=== PATIENT | female | born 1985 | race African-American/Black ===

== ENCOUNTER 2017-08-13 10:17 | Emergency (ER) | payer SELFPAY ==
[2017-08-13] MEDS ORDERED: Acetaminophen 500 MG TAB ONE (12:03)
--- NOTE | 2017-08-13 12:33 | ULT ---
PELVIC SONOGRAM: HISTORY: Pelvic pain. Pelvic bleeding. TECHNIQUE: Transabdominal and transvaginal imaging with duplex evaluation. FINDINGS: The urinary bladder is unremarkable. The uterus is retroverted and measures up to 13.1 cm in length. No free fluid is evident within the pelvis. The endometrium is 0.3 cm. The right ovary is 3 cm in length and the left is 3.2 cm. Each has a normal sonographic appearance and demonstrates good color and spectral Doppler flow. IMPRESSION: Retroverted uterus that is enlarged. No evidence of intrauterine . No abnormalities are de monstrated. POS: [facility]
== END 2017-08-13 15:00 | disposition home or self-care (01) ==
LOC: ERS 10:17
DX: O20.9 Hemorrhage in early pregnancy, unspecified (principal); O24.415 Gestational diabetes mellitus in pregnancy, controlled by oral hypoglycemic drugs; O99.351 Diseases of the nervous system complicating pregnancy, first trimester; G43.909 Migraine, unspecified, not intractable, without status migrainosus; O16.1 Unspecified maternal hypertension, first trimester; Z87.891 Personal history of nicotine dependence; Z79.899 Other long term (current) drug therapy; Z3A.10 10 weeks gestation of pregnancy
CPT/HCPCS: 76856

== ENCOUNTER 2018-05-30 17:21 | Emergency (ER) | payer OTHER ==
[2018-05-30] MEDS ORDERED: Lidocaine 1% PF 5 ML VIAL ONE (18:12)
[2018-05-30] MEDS ORDERED: Ondansetron ODT 4 MG TAB ONE (18:24)
[2018-05-30] MEDS ORDERED: HYDROcodone/Acetaminophen 10/325 mg Tablet ONE (18:40)
== END 2018-05-30 18:56 | disposition home or self-care (01) ==
LOC: ERS 17:21
DX: L02.31 Cutaneous abscess of buttock (principal); I10 Essential (primary) hypertension; Z87.891 Personal history of nicotine dependence; Z79.899 Other long term (current) drug therapy
CPT/HCPCS: 10060; 87070; 87077; 87186; 87205; J2001; Q0162

== ENCOUNTER 2018-11-26 08:22 | Emergency (ER) | payer OTHER ==
--- NOTE | 2018-11-26 09:12 | RAD ---
LEFT FOOT 3 VIEWS: Date: 11/26/18 HISTORY: Fall. COMPARISON: Left foot radiographs dated 02/14/18. FINDINGS: There is a bipartite medial hallux sesamoid versus an old fracture. The Lisfranc interval is maintain ed. Mild soft tissue swelling of the hindfoot. IMPRESSION: No acute osseous abnormality. POS: [facility]
--- NOTE | 2018-11-26 09:58 | RAD ---
LEFT ANKLE 3 VIEWS: Date: 11/26/18 HISTORY: Ankle pain. Patient tripped and fell down a few steps yesterday, twisting her ankle. FINDINGS: Calcaneal spurs are noted. There are no signs of fracture or dislocation. IMPRESSION: No evidence of fracture. POS: [facility]
[2018-11-26] MEDS ORDERED: Ibuprofen 800 MG TAB ONE (10:20)
== END 2018-11-26 10:30 | disposition home or self-care (01) ==
LOC: ERS 08:22
DX: M25.572 Pain in left ankle and joints of left foot (principal); I10 Essential (primary) hypertension; G43.909 Migraine, unspecified, not intractable, without status migrainosus; F41.9 Anxiety disorder, unspecified; F32.9 Major depressive disorder, single episode, unspecified; Z87.891 Personal history of nicotine dependence; Z79.899 Other long term (current) drug therapy; X50.9XXA Other and unspecified overexertion or strenuous movements or postures, initial encounter

== ENCOUNTER 2019-01-22 08:24 | Emergency (ER) | payer OTHER ==
[2019-01-22 09:31] LABS: #Eosinphils 0.1 thou/uL (0.0-0.7); #Lymphocytes 2.3 thou/uL (1.20-3.40); #Monocytes 0.4 thou/uL (0.11-0.59); #Neutrophils 4.7 thou/uL (1.40-6.50); %Basophils 0.5 % (0.0-1.0); %Eosinophils 1.8 % (0.0-10.0); %Lymphocytes 30.3 % (21.0-51.0); %Monocytes 5.6 % (0.0-10.0); %Neutrophils 61.8 % (42.0-75.0); Hemoglobin 11.8 g/dL (12.0-16.0); Mean Corpuscular HGB CONC 31.9 g/dL (32.0-36.0); Mean Corpuscular Hemoglobin 27.5 pg (27.0-31.0); Mean Corpuscular Volume 86.1 fL (78.0-98.0); Mean Platelet Volume 10.6 fL (7.4-10.4); Platelet Count 214 thou/uL (130-400); RBC Distribution Width 12.6 % (11.5-14.5); Red Blood Cell (RBC) Count 4.29 mill/uL (4.20-5.40); White Blood Cell (WBC) Count 7.7 thou/uL (4.8-10.8)
[2019-01-22 10:01] LABS: ALT (SGPT) 22 U/L (8-55); AST (SGOT) 14 U/L (5-34); Alkaline Phosphatase 95 U/L (40-150); Anion Gap 10 mmol/L (10-20); BUN (Urea Nitrogen) 9 mg/dL (7.0-18.7); Bilirubin, Total 0.3 mg/dL (0.2-1.2); Calc. Creatinine Clearance 0 mL/min (70-130); Calcium 9.3 mg/dL (7.8-10.44); Carbon Dioxide 28 mmol/L (22-29); Chloride 103 mmol/L (98-107); Estimated GFR-MDRD Greater than 90; Globulin 2.8 g/dL (2.4-3.5); Glucose 91 mg/dL (70-105); Lipase 15 U/L (8-78); Protein, Total 6.8 g/dL (6.0-8.3); Sodium 137 mmol/L (136-145)
== END 2019-01-22 10:47 | disposition home or self-care (01) ==
LOC: ERS 08:24
DX: D21.9 Benign neoplasm of connective and other soft tissue, unspecified (principal); I10 Essential (primary) hypertension; F41.9 Anxiety disorder, unspecified; F32.9 Major depressive disorder, single episode, unspecified; G43.909 Migraine, unspecified, not intractable, without status migrainosus; Z87.891 Personal history of nicotine dependence; Z79.899 Other long term (current) drug therapy
CPT/HCPCS: 36415; 80053; 83690; 85025; 99284

== ENCOUNTER 2019-01-27 17:16 | Emergency (ER) | payer OTHER ==
[2019-01-27] MEDS ORDERED: Ketorolac Tromethamine 30 MG/ML VIAL ONE (17:54)
== END 2019-01-27 18:00 | disposition home or self-care (01) ==
LOC: ERS 17:16
DX: K04.7 Periapical abscess without sinus (principal); K02.9 Dental caries, unspecified; I10 Essential (primary) hypertension; F41.9 Anxiety disorder, unspecified; F32.9 Major depressive disorder, single episode, unspecified; Z87.891 Personal history of nicotine dependence; Z79.899 Other long term (current) drug therapy
CPT/HCPCS: 96372; J1885

== ENCOUNTER 2019-02-21 19:52 | Emergency (ER) | payer OTHER ==
[2019-02-21] MEDS ORDERED: diphenhydrAMINE 50 MG/ML VIAL ONE (20:25)
[2019-02-21] MEDS ORDERED: Metoclopramide HCl 10 MG/2 ML VIAL ONE (20:25)
[2019-02-21 20:32] LABS: #Basophils 0.1 thou/uL (0.0-0.2); #Eosinphils 0.1 thou/uL (0.0-0.7); #Lymphocytes 2.9 thou/uL (1.20-3.40); #Monocytes 0.7 thou/uL (0.11-0.59); #Neutrophils 6.1 thou/uL (1.40-6.50); %Basophils 0.9 % (0.0-1.0); %Eosinophils 1.3 % (0.0-10.0); %Lymphocytes 29.1 % (21.0-51.0); %Monocytes 6.8 % (0.0-10.0); %Neutrophils 61.9 % (42.0-75.0); Hemoglobin 12.1 g/dL (12.0-16.0); Mean Corpuscular HGB CONC 32.1 g/dL (32.0-36.0); Mean Corpuscular Hemoglobin 27.5 pg (27.0-31.0); Mean Corpuscular Volume 85.6 fL (78.0-98.0); Mean Platelet Volume 10.8 fL (7.4-10.4); Platelet Count 207 thou/uL (130-400); RBC Distribution Width 12.8 % (11.5-14.5); White Blood Cell (WBC) Count 9.8 thou/uL (4.8-10.8)
[2019-02-21 20:59] LABS: ALT (SGPT) 32 U/L (8-55); AST (SGOT) 21 U/L (5-34); Albumin 4.3 g/dL (3.5-5.0); Alkaline Phosphatase 105 U/L (40-150); Anion Gap 9 mmol/L (10-20); BUN (Urea Nitrogen) 9 mg/dL (7.0-18.7); Bilirubin, Total 0.4 mg/dL (0.2-1.2); Calc. Creatinine Clearance 0 mL/min (70-130); Calcium 9.3 mg/dL (7.8-10.44); Carbon Dioxide 29 mmol/L (22-29); Chloride 103 mmol/L (98-107); Estimated GFR-MDRD 85; Globulin 3.3 g/dL (2.4-3.5); Glucose 101 mg/dL (70-105); Lipase 27 U/L (8-78); Potassium 3.2 mmol/L (3.5-5.1); Protein, Total 7.6 g/dL (6.0-8.3); Sodium 138 mmol/L (136-145)
[2019-02-21] MEDS ORDERED: Potassium Chloride 20 MEQ TAB ONE (22:34)
== END 2019-02-21 22:41 | disposition home or self-care (01) ==
LOC: ERS 19:52
DX: E87.6 Hypokalemia (principal); R19.7 Diarrhea, unspecified; R11.2 Nausea with vomiting, unspecified; I10 Essential (primary) hypertension; F41.9 Anxiety disorder, unspecified; F32.9 Major depressive disorder, single episode, unspecified; Z87.891 Personal history of nicotine dependence
CPT/HCPCS: 80053; 83690; 85025; 96365; 96366; 96375; J1200; J2765

== ENCOUNTER 2019-06-01 10:58 | Emergency (ER) | payer OTHER ==
[2019-06-01 11:33] LABS: #Basophils 0.1 thou/uL (0.0-0.2); #Eosinphils 0.2 thou/uL (0.0-0.7); #Lymphocytes 2.1 thou/uL (1.20-3.40); #Monocytes 0.4 thou/uL (0.11-0.59); #Neutrophils 5.4 thou/uL (1.40-6.50); %Eosinophils 2.3 % (0.0-10.0); %Lymphocytes 25.9 % (21.0-51.0); %Monocytes 5.3 % (0.0-10.0); %Neutrophils 65.5 % (42.0-75.0); Hemoglobin 12.6 g/dL (12.0-16.0); Mean Corpuscular HGB CONC 32.2 g/dL (32.0-36.0); Mean Corpuscular Hemoglobin 27.2 pg (27.0-31.0); Mean Corpuscular Volume 84.3 fL (78.0-98.0); Mean Platelet Volume 11.1 fL (7.4-10.4); Platelet Count 181 thou/uL (130-400); RBC Distribution Width 13.1 % (11.5-14.5); Red Blood Cell (RBC) Count 4.64 mill/uL (4.20-5.40); White Blood Cell (WBC) Count 8.3 thou/uL (4.8-10.8)
[2019-06-01 11:52] LABS: ALT (SGPT) 33 U/L (8-55); AST (SGOT) 22 U/L (5-34); Albumin 4.1 g/dL (3.5-5.0); Alkaline Phosphatase 96 U/L (40-150); Anion Gap 11 mmol/L (10-20); BUN (Urea Nitrogen) 11 mg/dL (7.0-18.7); Bilirubin, Total 0.5 mg/dL (0.2-1.2); Calc. Creatinine Clearance 0 mL/min (70-130); Calcium 9.3 mg/dL (7.8-10.44); Carbon Dioxide 24 mmol/L (22-29); Chloride 104 mmol/L (98-107); Estimated GFR-MDRD Greater than 90; Globulin 3.2 g/dL (2.4-3.5); Glucose 111 mg/dL (70-105); Lipase 20 U/L (8-78); Potassium 3.6 mmol/L (3.5-5.1); Protein, Total 7.3 g/dL (6.0-8.3); Sodium 135 mmol/L (136-145)
--- NOTE | 2019-06-01 12:35 | RAD ---
EXAM: CHEST ONE VIEW HISTORY: Cough and sore throat. Headache. COMPARISON: 11/20/2015 obtained from [facility]. FINDINGS: Cardiac silhouette is magnified by projection. The pulmonary vasculature is within normal limits. The lungs are clear. The osseous structures are intact. There has been no interval change from prior exam. IMPRESSION: No acute cardiopulmonary process.
[2019-06-01 12:48] LABS: Bilirubin Negative (Negative); Blood, Urine Negative (Negative); Clarity Clear (Clear); Glucose, Urine (Dipstick) Normal (Negative); Leukocyte Negative Leu/uL (Negative); Nitrite Negative (Negative); Protein, Urine (Dipstick) Negative (Neg-Trace); Urobilinogen Normal mg/dL (Less than 2)
[2019-06-01 13:25] LABS: Pregnancy Test - Urine (BHCG) Negative (Negative); Pregu Control Background? CLEAR/WHITE (CLR/WHITE); Pregu Control Bar Appear? YES (CONTROL BAR); Specific Gravity 1.016 (1.002-1.036)
== END 2019-06-01 14:11 | disposition home or self-care (01) ==
LOC: ERS 10:58
DX: R11.2 Nausea with vomiting, unspecified (principal); R19.7 Diarrhea, unspecified; I10 Essential (primary) hypertension
CPT/HCPCS: 36415; 71045; 80053; 81003; 81025; 83690; 85025

== ENCOUNTER 2019-08-30 13:01 | Emergency (ER) | payer OTHER ==
[2019-08-30 15:13] LABS: Bilirubin Negative (Negative); Blood, Urine Negative (Negative); Clarity Clear (Clear); Glucose, Urine (Dipstick) Normal (Negative); Leukocyte Negative Leu/uL (Negative); Nitrite Negative (Negative); Protein, Urine (Dipstick) Negative (Neg-Trace); Urobilinogen Normal mg/dL (Less than 2)
[2019-08-30 15:14] LABS: Pregnancy Test - Urine (BHCG) Negative (Negative); Pregu Control Background? CLEAR/WHITE (CLR/WHITE); Pregu Control Bar Appear? YES (CONTROL BAR); Specific Gravity 1.021 (1.002-1.036)
[2019-08-30] MEDS ORDERED: Ketorolac Tromethamine 60 MG/2 ML VIAL ONE (16:24)
== END 2019-08-30 16:50 | disposition home or self-care (01) ==
LOC: ERS 13:01
DX: S29.012A Strain of muscle and tendon of back wall of thorax, initial encounter (principal); G43.909 Migraine, unspecified, not intractable, without status migrainosus; F41.9 Anxiety disorder, unspecified; F32.9 Major depressive disorder, single episode, unspecified; I10 Essential (primary) hypertension; W18.2XXA Fall in (into) shower or empty bathtub, initial encounter
CPT/HCPCS: 81003; 81025; 96372; 99283; J1885

== ENCOUNTER 2019-12-20 19:35 | Emergency (ER) | payer OTHER | END 2019-12-20 20:52 | disposition home or self-care (01) | LOC: ERS 19:35 | DX: F43.0 Acute stress reaction (principal); I10 Essential (primary) hypertension; F41.9 Anxiety disorder, unspecified; F32.9 Major depressive disorder, single episode, unspecified; Z87.891 Personal history of nicotine dependence; Z79.899 Other long term (current) drug therapy | CPT/HCPCS: 99283 ==

== ENCOUNTER 2020-01-23 10:22 | Emergency (ER) | payer OTHER ==
[2020-01-23] MEDS ORDERED: Acetaminophen/Codeine 30-300mg Tablet ONE (11:19)
[2020-01-23 11:48] LABS: Bilirubin Negative (Negative); Blood, Urine Negative (Negative); Clarity Clear (Clear); Glucose, Urine (Dipstick) Normal (Negative); Leukocyte Negative Leu/uL (Negative); Nitrite Negative (Negative); Protein, Urine (Dipstick) Negative (Neg-Trace); Urobilinogen Normal mg/dL (Less than 2)
[2020-01-23 11:51] LABS: Pregnancy Test - Urine (BHCG) Negative (Negative); Pregu Control Background? CLEAR/WHITE (CLR/WHITE); Pregu Control Bar Appear? YES (CONTROL BAR); Specific Gravity 1.026 (1.002-1.036)
== END 2020-01-23 12:11 | disposition home or self-care (01) ==
LOC: ERS 10:22
DX: R10.9 Unspecified abdominal pain (principal); I10 Essential (primary) hypertension; G43.909 Migraine, unspecified, not intractable, without status migrainosus; F41.9 Anxiety disorder, unspecified; F32.9 Major depressive disorder, single episode, unspecified; Z87.891 Personal history of nicotine dependence; Z79.899 Other long term (current) drug therapy
CPT/HCPCS: 81003; 81025; 99284

== ENCOUNTER 2020-05-12 12:35 | Emergency (ER) | payer OTHER ==
[2020-05-13 14:05] LABS: SARS-CoV-2 MS2 Positive; SARS-CoV-2 N Gene Negative; SARS-CoV-2 S Gene Negative; SARS-CoV-2 by NAA Not Detected (NotDetected); SARS-CoV-2 orf1ab Negative
== END 2020-05-12 13:20 | disposition home or self-care (01) ==
LOC: ERS 12:35
DX: R05 Cough (principal); R52 Pain, unspecified; Z20.828 Contact with and (suspected) exposure to other viral communicable diseases; F41.9 Anxiety disorder, unspecified; F32.9 Major depressive disorder, single episode, unspecified; I10 Essential (primary) hypertension; G43.909 Migraine, unspecified, not intractable, without status migrainosus; Z87.891 Personal history of nicotine dependence
CPT/HCPCS: 87635; 99283; U0003

== ENCOUNTER 2020-05-25 11:12 | Emergency (ER) | payer OTHER ==
[2020-05-26 13:51] LABS: SARS-CoV-2 MS2 Positive; SARS-CoV-2 N Gene Negative; SARS-CoV-2 S Gene Negative; SARS-CoV-2 by NAA Not Detected (NotDetected); SARS-CoV-2 orf1ab Negative
== END 2020-05-25 11:25 | disposition home or self-care (01) ==
LOC: ERS 11:12
DX: Z20.828 Contact with and (suspected) exposure to other viral communicable diseases (principal); I10 Essential (primary) hypertension; G43.909 Migraine, unspecified, not intractable, without status migrainosus; F41.9 Anxiety disorder, unspecified; F32.9 Major depressive disorder, single episode, unspecified; Z87.891 Personal history of nicotine dependence
CPT/HCPCS: 87635; 99283; U0003

== ENCOUNTER 2021-02-06 10:14 | Emergency (ER) | payer OTHER ==
[2021-02-06 16:43] LABS: SARS-CoV-2 PCR by NAA Not Detected (NotDetected)
== END 2021-02-06 11:37 | disposition home or self-care (01) ==
LOC: ERS 10:14
DX: J20.9 Acute bronchitis, unspecified (principal); Z20.822 Contact with and (suspected) exposure to COVID-19; Z79.899 Other long term (current) drug therapy
CPT/HCPCS: 71045; 87635; 93005; U0003; U0005

== ENCOUNTER 2022-02-05 19:01 | Emergency (ER) | payer OTHER | END 2022-02-05 21:55 | disposition home or self-care (01) | LOC: ERS 19:01 | DX: H66.92 Otitis media, unspecified, left ear (principal); H60.93 Unspecified otitis externa, bilateral; K08.89 Other specified disorders of teeth and supporting structures; I10 Essential (primary) hypertension; Z87.891 Personal history of nicotine dependence; Z79.899 Other long term (current) drug therapy | CPT/HCPCS: 99282 ==

== ENCOUNTER 2023-01-19 11:23 | Emergency (ER) | payer OTHER ==
[2023-01-19] MEDS ORDERED: Ketorolac Tromethamine 30 MG/ML VIAL ONE (12:18)
[2023-01-19] MEDS ORDERED: Acetaminophen 500 MG TAB ONE (14:27)
== END 2023-01-19 14:28 | disposition home or self-care (01) ==
LOC: ERS 11:23
DX: R07.9 Chest pain, unspecified (principal); I10 Essential (primary) hypertension; Z87.891 Personal history of nicotine dependence
CPT/HCPCS: 71045; 93005; 96372; J1885

== ENCOUNTER 2023-08-02 22:41 | Emergency (ER) | payer OTHER ==
[2023-08-02 23:24] LABS: Bilirubin Negative (Negative); Blood, Urine Trace (Negative); Clarity Clear (Clear); Glucose, Urine (Dipstick) Normal (Negative); Ketone, Urine Negative (Negative); Leukocyte Negative Leu/uL (Negative); Nitrite Negative (Negative); Pregnancy Test - Urine (BHCG) Negative (Negative); Pregu Control Background? CLEAR/WHITE (CLR/WHITE); Pregu Control Bar Appear? YES (CONTROL BAR); Protein, Urine (Dipstick) 20 mg/dL (Neg-Trace); Specific Gravity 1.038 (1.002-1.036); Specific Gravity, Urine 1.038 (1.002-1.036)
[2023-08-02] MEDS ORDERED: Ketorolac Tromethamine 30 MG/ML VIAL ONE (23:26)
[2023-08-02 23:32] LABS: Bacteria/HPF Rare-Few HPF (None Seen); CAUTI Indications for Culture Pelvic or flank pain; RBC/HPF 0-3 HPF (0-3); WBC/HPF 0-3 HPF (0-3)
[2023-08-02 23:35] LABS: Sperm/HPF Rare HPF (None Seen)
[2023-08-02 23:36] LABS: Urine Culture Reflex No No
== END 2023-08-03 00:06 | disposition home or self-care (01) ==
LOC: ERS 22:41
DX: S39.012A Strain of muscle, fascia and tendon of lower back, initial encounter (principal); I10 Essential (primary) hypertension; Z87.891 Personal history of nicotine dependence; Z79.899 Other long term (current) drug therapy
CPT/HCPCS: 81001; 81025; 96372; 99283; J1885

== ENCOUNTER 2023-10-06 19:48 | Emergency (ER) | payer OTHER, SELFPAY ==
[2023-10-06] MEDS ORDERED: Dexamethasone 10 MG/ML VIAL ONE (20:07)
[2023-10-06] MEDS ORDERED: diphenhydrAMINE 50 MG/ML VIAL ONE (20:07)
== END 2023-10-06 20:15 | disposition home or self-care (01) ==
LOC: ERS 19:48
DX: L42 Pityriasis rosea (principal); I10 Essential (primary) hypertension; Z79.899 Other long term (current) drug therapy
CPT/HCPCS: 96372; 99282; J1100; J1200